=== PATIENT | male | born 1990 | race African-American/Black ===

== ENCOUNTER 2020-07-11 18:59 | Inpatient (IN) | payer MEDICAID ==
[~2020-07-11] VITALS: Ht 177.8 cm; Wt 56.3 kg
[2020-07-11] MEDS ORDERED: HYDROcodone-ACET 10/325MG TAB PO ONE (22:15)
[2020-07-11] MEDS ORDERED: ONDANSETRON ODT 4 MG TAB PO ONE (22:15)
[2020-07-11] MEDS ORDERED: CLINDAMYCIN 600MG IV 50 ML IV ONE (23:45)
[2020-07-12] MEDS ORDERED: cefTRIAXone 1GM/50ML D5W 50 ML IV ONE (00:45)
[2020-07-12 01:13] LABS: Basophils # (auto) 0.1 10 ^3/uL (0-0.2); Basophils % (auto) 0.7 % (0.0-2.0); Eosinophils # (auto) 0.4 10 ^3/uL (0-0.8); Eosinophils % (auto) 4.3 % (0.0-7.0); Hematocrit 48.1 % (41.0-53.0); Hemoglobin 16.1 g/dL (13.5-17.5); Lymphocytes # (auto) 1.5 10 ^3/uL (0.4-5.4); Lymphocytes % (auto) 16.4 % (10.0-50.0); Mean Corpuscular Hemoglobin 30.2 pg (28.0-32.0); Mean Corpuscular Hgb Conc. 33.6 g/dL (32.0-36.0); Mean Corpuscular Volume 90.1 fL (80.0-100.0); Monocytes # (auto) 1.1 10 ^3/uL (0-1.3); Monocytes % (auto) 12.3 % (0.0-12.0); Neutrophils # (auto) 6.2 10 ^3/uL (1.6-8.6); Neutrophils % (auto) 66.3 % (37.0-80.0); Nucleated Red Blood Cells % 0.1 %; Platelet Count (auto) 255 10^3/uL (140-450); Red Blood Cells 5.33 10^6/uL (4.5-5.90); Red Cell Distribution Width 13.7 % (11.8-14.3); White Blood Cell 9.3 10^3/uL (4.4-10.8)
[2020-07-12] MEDS ORDERED: ONDANSETRON HCL 4 MG/2 ML VIAL IV ONE (02:45)
[2020-07-12] MEDS ORDERED: MORPHINE SULF INJ 2 MG/ML SYRINGE 1ML IV ONE (02:45)
[2020-07-12] MEDS ORDERED: ONDANSETRON HCL 4 MG/2 ML VIAL IV PRN (04:45)
[2020-07-12] MEDS ORDERED: ACETAMINOPHEN 325 MG TAB PO PRN (04:45)
[2020-07-12] MEDS ORDERED: NITROGLYCERIN 0.4 MG SL TAB SL PRN (04:45)
[2020-07-12] MEDS ORDERED: DOCUSATE SOD 100 MG CAP PO PRN (04:45)
[2020-07-12] MEDS ORDERED: HYDROcodone-ACET 5/325MG TAB PO PRN (04:45)
[2020-07-12] MEDS ORDERED: MORPHINE SULF INJ 2 MG/ML SYRINGE 1ML IV PRN (04:45)
[2020-07-12] MEDS: CLINDAMYCIN 300MG IV 50 ML IV SCH ×3 (07:06→21:21)
[2020-07-12] MEDS: cefTRIAXone 1GM/50ML D5W 50 ML IV SCH (17:00)
[2020-07-12] MEDS: FAMOTIDINE 20 MG TAB PO SCH ×2 (17:01→21:22)
[2020-07-12] MEDS: ZINC SULFATE 220mg CAP or TAB PO SCH (17:01)
[2020-07-12] MEDS: ENOXAPARIN SOD 30 MG/0.3 ML SYRINGE SC SCH (17:02)
[2020-07-12] MEDS: MORPHINE SULFATE 4 MG/ML SYR/VIAL IV PRN (17:02)
[2020-07-12] MEDS: MULTIPLE VITAMIN TAB PO SCH (17:02)
[2020-07-12] MEDS: ASCORBIC ACID 500 MG TAB PO SCH ×2 (17:02→21:22)
[2020-07-13] MEDS: MORPHINE SULFATE 4 MG/ML SYR/VIAL IV PRN (04:28)
[2020-07-13 05:00] VITALS: BP 111/67
[2020-07-13 05:10] VITALS: BP 111/67
[2020-07-13] MEDS: CLINDAMYCIN 300MG IV 50 ML IV SCH ×2 (06:47→15:39)
[2020-07-13 08:54] VITALS: BP 105/61
[2020-07-13] MEDS: ASCORBIC ACID 500 MG TAB PO SCH (09:46)
[2020-07-13] MEDS: ENOXAPARIN SOD 30 MG/0.3 ML SYRINGE SC SCH (09:46)
[2020-07-13] MEDS: cefTRIAXone 1GM/50ML D5W 50 ML IV SCH (09:46)
[2020-07-13] MEDS: ZINC SULFATE 220mg CAP or TAB PO SCH (09:47)
[2020-07-13] MEDS: MULTIPLE VITAMIN TAB PO SCH (09:47)
[2020-07-13] MEDS: FAMOTIDINE 20 MG TAB PO SCH (09:48)
[2020-07-13 13:00] VITALS: BP 115/67
[2020-07-13 16:05] VITALS: BP 115/67
[2020-07-13 17:00] VITALS: BP 106/57
== END 2020-07-13 20:24 | disposition home or self-care (01) | DRG 82 ==
LOC: ER 19:00 → OVERFLOW 19:01 → TELE-WESTW 07-13 03:25
PROVIDERS: ADMIT Nurse Practitioner Family; ATTEND Internal Medicine
DX: H16.002 Unspecified corneal ulcer, left eye (principal); L03.213 Periorbital cellulitis; J45.909 Unspecified asthma, uncomplicated; Z20.828 Contact with and (suspected) exposure to other viral communicable diseases; H40.9 Unspecified glaucoma; H05.011 Cellulitis of right orbit; H05.012 Cellulitis of left orbit
CPT/HCPCS: 36415; 70480; 85025; 87040; 87075; 87077; 87186; 87205; 87426; 96365; 96367; 96375; G0378; J0696; J2405; J3490

== ENCOUNTER → 2022-05-27 | Emergency (ER) | payer MEDICAID ==
[~2022-05-27] VITALS: Ht 177.8 cm; Wt 70.0 kg
[2022-05-27 00:18] VITALS: BP 121/83
[2022-05-27 01:29] LABS: Basophils # (auto) 0.1 10 ^3/uL (0-0.2); Eosinophils # (auto) 0.6 10 ^3/uL (0-0.8); Eosinophils % (auto) 9.4 % (0.0-7.0); Hematocrit 45.5 % (41.0-53.0); Hemoglobin 15.2 g/dL (13.5-17.5); Lymphocytes # (auto) 2.1 10 ^3/uL (0.4-5.4); Lymphocytes % (auto) 32.3 % (10.0-50.0); Mean Corpuscular Hemoglobin 29.8 pg (28.0-32.0); Mean Corpuscular Hgb Conc. 33.3 g/dL (32.0-36.0); Mean Corpuscular Volume 89.3 fL (80.0-100.0); Monocytes # (auto) 0.5 10 ^3/uL (0-1.3); Monocytes % (auto) 8.2 % (0.0-12.0); Neutrophils # (auto) 3.2 10 ^3/uL (1.6-8.6); Neutrophils % (auto) 49.1 % (37.0-80.0); Nucleated Red Blood Cells % 0.1 %; Red Blood Cells 5.09 10^6/uL (4.5-5.90); Red Cell Distribution Width 14.6 % (11.8-14.3); White Blood Cell 6.6 10^3/uL (4.4-10.8)
[2022-05-27 01:38] LABS: Albumin 3.4 g/dL (3.4-5.0); BUN/Creatinine Ratio 15.8; Calcium 8.8 mg/dL (8.5-10.1); Potassium 4.1 mmol/L (3.5-5.1)
[2022-05-27 01:40] LABS: Bilirubin, Total 0.6 mg/dL (0.2-1.0); Total Protein 6.6 g/dL (6.4-8.2)
== END | disposition home or self-care (01) ==
LOC: EDUNIT# → EDBD 00:08 → ER 00:08
DX: R07.89 Other chest pain (principal)
CPT/HCPCS: 36415; 71045; 80053; 84484; 85025; 93005

== ENCOUNTER 2022-06-14 19:44 | Emergency (ER) | payer MEDICAID ==
[~2022-06-14] VITALS: Ht 157.5 cm; Wt 68.2 kg
[2022-06-14 20:05] VITALS: BP 129/75
[2022-06-14] MEDS ORDERED: ONDANSETRON ODT 4 MG TAB PO ONE (21:15)
[2022-06-14] MEDS ORDERED: DICYCLOMINE HCL 10 MG CAP PO ONE (21:15)
[2022-06-15] MEDS ORDERED: ONDA-144 PO (00:44)
== END 2022-06-15 01:01 | disposition home or self-care (01) ==
LOC: ER 19:48
DX: A05.9 Bacterial foodborne intoxication, unspecified (principal); Z20.822 Contact with and (suspected) exposure to COVID-19
CPT/HCPCS: 36415; 87426; Q0162

== ENCOUNTER 2022-10-27 22:24 | Emergency (ER) | payer MEDICAID ==
[~2022-10-27] VITALS: Ht 180.3 cm; Wt 70.4 kg
[~2022-10-27 22:24] MED LIST: ONDA-144 PO
[2022-10-27 22:35] VITALS: BP 122/67
== END 2022-10-28 01:14 | disposition left against medical advice (07) ==
LOC: ER 22:24
DX: M79.642 Pain in left hand (principal); Z53.21 Procedure and treatment not carried out due to patient leaving prior to being seen by health care provider
CPT/HCPCS: 73130

== ENCOUNTER 2023-01-26 00:32 | Emergency (ER) | payer MEDICAID ==
[~2023-01-26] VITALS: Ht 177.8 cm; Wt 65.9 kg
[2023-01-26 02:07] LABS: Basophils # (auto) 0 10 ^3/uL (0-0.2); Basophils % (auto) 0.6 % (0.0-2.0); Eosinophils # (auto) 0.3 10 ^3/uL (0-0.8); Eosinophils % (auto) 3.6 % (0.0-7.0); Hematocrit 45.2 % (41.0-53.0); Hemoglobin 15.3 g/dL (13.5-17.5); Lymphocytes # (auto) 2.1 10 ^3/uL (0.4-5.4); Lymphocytes % (auto) 26.4 % (10.0-50.0); Mean Corpuscular Hgb Conc. 33.8 g/dL (32.0-36.0); Mean Corpuscular Volume 88.8 fL (80.0-100.0); Monocytes # (auto) 0.9 10 ^3/uL (0-1.3); Monocytes % (auto) 11.5 % (0.0-12.0); Neutrophils # (auto) 4.6 10 ^3/uL (1.6-8.6); Neutrophils % (auto) 57.9 % (37.0-80.0); Nucleated Red Blood Cells % 0.3 %; Red Blood Cells 5.09 10^6/uL (4.5-5.90); Red Cell Distribution Width 14.8 % (11.8-14.3); White Blood Cell 7.9 10^3/uL (4.4-10.8)
[2023-01-26 02:11] LABS: Albumin 3.9 g/dL (3.4-5.0); Calcium 9.6 mg/dL (8.5-10.1)
[2023-01-26 02:12] LABS: Bilirubin, Total 0.6 mg/dL (0.2-1.0); Total Protein 7.9 g/dL (6.4-8.2)
[2023-01-26 02:15] LABS: Salicylate < 1.7 mg/dL (2.8-20.0)
[2023-01-26 02:19] LABS: Acetaminophen < 2.0 ug/mL (10-30)
[2023-01-26 07:50] VITALS: BP 119/64
== END 2023-01-26 09:20 | disposition home or self-care (01) ==
LOC: ER 00:32
DX: R41.82 Altered mental status, unspecified (principal); F41.9 Anxiety disorder, unspecified; F32.9 Major depressive disorder, single episode, unspecified
CPT/HCPCS: 36415; 70450; 71045; 80053; 80320; 80329; 84443; 85025

== ENCOUNTER 2023-04-09 13:47 | Emergency (ER) | payer MEDICAID ==
[~2023-04-09] VITALS: Ht 177.8 cm; Wt 68.0 kg
[2023-04-09 15:21] VITALS: BP 96/58; PULSE 97; RESP 20; TEMP 98.4; O2SAT 98
[2023-04-09] MEDS ORDERED: HYDROcodone-ACET 5/325MG TAB PO ONE (16:45)
[2023-04-09] MEDS ORDERED: IBUP-1455 PO (17:31)
== END 2023-04-09 17:27 | disposition home or self-care (01) ==
LOC: ER 13:47
DX: S93.401A Sprain of unspecified ligament of right ankle, initial encounter (principal); Z79.899 Other long term (current) drug therapy; X50.1XXA Overexertion from prolonged static or awkward postures, initial encounter; Y93.89 Activity, other specified; Y92.89 Other specified places as the place of occurrence of the external cause; Y99.8 Other external cause status
CPT/HCPCS: 73610; 73630